=== PATIENT | female | born 1985 | race American Indian/Alaskan Native ===

== ENCOUNTER 2017-08-28 13:16 | Emergency (ER) | payer BC ==
[2017-08-28 14:28] VITALS: BP 130/86
[2017-08-28] MEDS ORDERED: BSS 1 DROPS, TETRACAINE 0.5% 1 DROPS, FUL-GLO 1 MG OS ONE (15:04)
[2017-08-28] MEDS ORDERED: CIPRODEX AS ONE (15:06)
[2017-08-28] MEDS ORDERED: FUL-GLO OP ONE (15:06)
[2017-08-28] MEDS ORDERED: TETRACAINE 0.5% OU ONE (15:07)
--- NOTE | 2017-08-28 15:24 | Emergency Department Report ---
Eye Injury/Foreign Body - HPI Duration: Today Eye Location: Left Severity: Mild Tetanus Status: Up to Date Eye Symptoms: Eye Pain: Yes, Blurred Vision: Yes, Eye Redness: Yes, Grinding/ Hammering Metal: No, Used Eye Protection: No, Contact Lens Use: Yes, Recalls Injury: No, Photophobia: Yes Other History: contacts. has not worn in weeks. woke up like this. no trauma ED Review of Systems ROS: Stated complaint: LEFT EYE INJURY Other details as noted in HPI Comment: All other systems reviewed and negative Eyes: as per HPI, eye pain, vision change. denies: eye discharge ED Past Medical Hx - Past Medical History Previous Medical History?: No - Surgical History Past Surgical History?: Yes Additional Surgical History: hernia - Family History Family history: no significant - Social History Smoking Status: Never Smoker Substance Use Type: Alcohol - Medications Home Medications: Home Medications Medication Instructions Recorded Confirmed Last Taken Type Cipro/Dexameth 0.3/0.1% [Ciprodex 2 drops OS Q4H #1 bottle 08/28/17 Unknown Rx OT[facility]] traMADol [Ultram] 50 mg PO Q6HR PRN #12 tablet 08/28/17 Unknown Rx Eye Injury Exam - Exam General: Vital signs noted. No distress. Alert and acting appropriately. - Visual Acuity Left Vision Acuity Degree: 20/200 Eye Exam: Right Photophobia, Both EOMI, Neither Injection, Neither Chemosis, Neither Abnormal Pupil, Neither Mucous Discharge, Neither Purulent Discharge Exam: tetracaine to l eye. w relief of pain and senstivity. stain w no inc uptake. no abrasion. no fb. no ulceration. no trauma or globe injury. perrl. eoms intact Right Vision Acuity Degree: 20/50 Bilateral Vision Acuity Degree: 20/40 ED Course Vital Signs 08/28/17 14:26 Temperature 98 F Pulse Rate 98 H Respiratory 16 Rate Blood Pressure 130/86 O2 Sat by Pulse 97 Oximetry - Reevaluation(s) Reevaluation #1: 08/28/17 15:54 to er w l eye pain no trauma wears contacts but has not for 2 w no meds no allergies no med problems va noted perrl eoms intact no pain w pupil constriction does report gen photophobia causing tearing fl. stain conducted relief w tetracaine globe intact; no trauma eoms intact medicated discussed w pt the need for optha follow up in am she verbalizes understanding. dc home w dc poc ED Medical Decision Making - Medical Decision Making see note - Differential Diagnosis conjunctivitis v iritis Critical care attestation.: If time is entered above; I have spent that time in minutes in the direct care of this critically ill patient, excluding procedure time. ED Disposition Clinical Impression: Iritis Disposition: DC-01 TO HOME OR SELFCARE Is pt being admited?: No Does the pt Need Aspirin: No Condition: Stable Instructions: Eye Pain (ED) Additional Instructions: do not rub eye meds as ordered follow up optha in am no contact lenses meds as ordered today Prescriptions: Cipro/Dexameth 0.3/0.1% [Ciprodex OTIC] 2 drops OS Q4H #1 bottle traMADol [Ultram] 50 mg PO Q6HR PRN #12 tablet PRN Reason: Pain Referrals: PRIMARY CARE, [Primary Care Provider] - 3-5 Days RAJ CALDERON MD [Staff Physician] - 3-5 Days PABLO CHUNG MD [Staff Physician] - 3-5 Days CEE IRBY MD [Staff Physician] - 3-5 Days Time of Disposition: 15:48
[2017-08-28] MEDS ORDERED: NORCO PO ONE (15:49)
== END 2017-08-28 16:20 | disposition home or self-care (01) ==
LOC: ED 13:16
DX: H20.9 Unspecified iridocyclitis (principal)
CPT/HCPCS: 99283

== ENCOUNTER 2018-02-01 13:14 | Emergency (ER) | payer BC, MEDICAID ==
--- NOTE | 2018-02-01 15:09 | Emergency Department Report ---
Blank Doc - Documentation Documentation: Patient is a 32-year-old female who has had several days of right lower quadrant pain. Patient states is also nausea involved. Patient states she is approximately 16 days late for her period. Patient has taken at home test which was negative hours patient states historically with past pregnancies in the beginning she has had negative urine test despite being . Patient will have a urinalysis and test performed here in the emergency department. If the patient is and because of her right lower quadrant pain and she will need to be ruled out for an ectopic . The patient is not th we will potentially work patient up to ensure she does not have appendicitis. En
[2018-02-01 15:17] LABS: Bacteria,Urine 1+ /HPF (Negative); Bilirubin,Urine NEG (Negative); Blood,Urine NEG (Negative); Color,Urine Yellow (Yellow); Mucus,Urine 1+ /HPF; Protein,Urine <15 mg/dL mg/dL (Negative); Urobilinogen,Urine < 2.0 mg/dL (<2.0)
[2018-02-01 15:21] LABS: HCG Qualitative,Urine Negative (Negative)
--- NOTE | 2018-02-01 16:20 | Emergency Department Report ---
ED Abdominal Pain HPI - General Chief Complaint: Abdominal Pain Stated Complaint: LOWER ABDOMINAL PAIN Time Seen by Provider: 02/01/18 15:00 Source: patient, family Mode of arrival: Ambulatory Limitations: No Limitations - History of Present Illness Initial Comments: Patient is a 32-year-old female who has had several days of right lower quadrant pain. Patient states is also nausea involved. Patient states she is approximately 16 days late for her period. Patient has taken at home test which was negative hours patient states historically with past pregnancies in the beginning she has had negative urine test despite being . She describes the pain as stabbing pain and also throbbing. Denies any fever or chills. Denies any urinary burning frequency or rigidity. Denies any nausea or vomiting. Denies any back pain. Denies any shortness of breath or chest pain. Last menstrual period was 12/17/2017. Denies taking any medication for pain. Denies any vaginal bleeding or discharge. She has no concerns for STDs. MD Complaint: abdominal pain, other (late menses) Onset/Timin -: days(s) Location: suprapubic Radiation: none Migration to: no migration Severity: mild Severity scale (0 -10): 3 Quality: cramping, other (thrombin) Consistency: intermittent Improves With: nothing Worsens With: nothing Context: other (she thinks she is ) Associated Symptoms: denies: nausea, vomiting, diarrhea, constipation, dysuria, hematemesis, hematochezia, hematuria, anorexia, syncope Treatments Prior to Arrival: other (none) - Related Data LMP Date: 12/17/17 Previous Rx's Medication Instructions Recorded Last Taken Type Cipro/Dexameth 0.3/0.1% [Ciprodex 2 drops OS Q4H #1 bottle 08/28/17 Unknown Rx OT[facility]] traMADol [Ultram] 50 mg PO Q6HR PRN #12 tablet 08/28/17 Unknown Rx Allergies Allergy/AdvReac Type Severity Reaction Status Date / Time No Known Allergies Allergy Verified 08/28/17 14:29 ED Review of Systems ROS: Stated complaint: LOWER ABDOMINAL PAIN Other details as noted in HPI Comment: All other systems reviewed and negative Constitutional: denies: chills, fever ENT: denies: throat pain Respiratory: denies: cough, shortness of breath, wheezing Cardiovascular: denies: chest pain, palpitations Endocrine: no symptoms reported Gastrointestinal: abdominal pain. denies: nausea, vomiting, diarrhea, constipation, hematemesis, melena, hematochezia Genitourinary: abnormal menses. denies: urgency, dysuria, frequency, hematuria , discharge, dyspareunia Musculoskeletal: denies: back pain, joint swelling, arthralgia Skin: denies: rash, lesions Neurological: denies: headache, weakness ED Past Medical Hx - Past Medical History Previous Medical History?: No - Surgical History Past Surgical History?: Yes Additional Surgical History: Hernia repair 2016. D and C 2007 - Family History Family history: cancer, hypertension - Social History Smoking Status: Never Smoker Substance Use Type: None Other Social History: Patient is and lives with her - Medications Home Medications: Home Medications Medication Instructions Recorded Confirmed Last Taken Type Cipro/Dexameth 0.3/0.1% [Ciprodex 2 drops OS Q4H #1 bottle 08/28/17 Unknown Rx OT[facility]] traMADol [Ultram] 50 mg PO Q6HR PRN #12 tablet 08/28/17 Unknown Rx ED Physical Exam - General Limitations: No Limitations General appearance: alert, in no apparent distress - Head Head exam: Present: atraumatic, normocephalic - Eye Eye exam: Present: normal appearance, PERRL. Absent: scleral icterus, conjunctival injection - ENT ENT exam: Present: normal exam, normal orophraynx, mucous membranes moist - Neck Neck exam: Present: normal inspection, full ROM - Respiratory Respiratory exam: Present: normal lung sounds bilaterally. Absent: respiratory distress, chest wall tenderness - Cardiovascular Cardiovascular Exam: Present: regular rate, normal rhythm, normal heart sounds. Absent: systolic murmur, diastolic murmur - GI/Abdominal GI/Abdominal exam: Present: soft, tenderness (right pelvic area), normal bowel sounds. Absent: distended, guarding, rebound, rigid, organomegaly, mass, bruit , pulsatile mass, hernia - Expanded GI/Abdominal Exam Expanded GI/Abdominal exam: Absent: psoas sign, obturator sign, tenderness at Mcburney's Point - Extremities Exam Extremities exam: Present: normal inspection, full ROM, normal capillary refill , other (no clubbing, cyanosis or edema, +2 pulses to all extremities.). Absent : tenderness, pedal edema, joint swelling, calf tenderness - Back Exam Back exam: Present: normal inspection, full ROM, other (ambulates without any difficulties). Absent: tenderness, CVA tenderness (R), CVA tenderness (L), muscle spasm, paraspinal tenderness, vertebral tenderness, rash noted - Neurological Exam Neurological exam: Present: alert, oriented X3, normal gait - Psychiatric Psychiatric exam: Present: normal affect, normal mood - Skin Skin exam: Present: warm, dry, intact, normal color. Absent: rash ED Course Vital Signs 02/01/18 13:45 Temperature 98.0 F Pulse Rate 86 Respiratory 16 Rate Blood Pressure 121/79 O2 Sat by Pulse 98 Oximetry - Reevaluation(s) Reevaluation #1: 02/01/18 17:33 Patient is stable throughout ED stay. She has no complaints her vital signs are stable. Patient given CT scan done at present. Reevaluation #2: 02/01/18 18:20 She refused to wait for CT scan results and decide she wants to go. I discussed with her that she has tenderness to her right lower abdominal area which could suggest that she has appendicitis and if so this could be a detriment to her health. She says she is hungry and she doesn't care and she would like to go ED Medical Decision Making - Lab Data Result diagrams: 02/01/18 16:35 02/01/18 16:35 Lab Results 02/01/18 02/01/18 02/01/18 Range/Units 16:35 16:35 Unknown WBC 9.5 (4.5-11.0) K/mm3 RBC 4.98 (3.65-5.03) M/mm3 Hgb 12.8 (10.1-14.3) gm/dl Hct 38.1 (30.3-42.9) % MCV 77 L (79-97) fl MCH 26 L (28-32) pg MCHC 34 (30-34) % RDW 14.9 (13.2-15.2) % Plt Count 296 (140-440) K/mm3 Lymph % (Auto) 35.6 H (13.4-35.0) % Harper % (Auto) 8.6 H (0.0-7.3) % Eos % (Auto) 1.6 (0.0-4.3) % Baso % (Auto) 0.5 (0.0-1.8) % Lymph # 3.4 (1.2-5.4) K/mm3 Harper # 0.8 (0.0-0.8) K/mm3 Eos # 0.1 (0.0-0.4) K/mm3 Baso # 0.0 (0.0-0.1) K/mm3 Seg Neutrophils % 53.7 (40.0-70.0) % Seg Neutrophils # 5.1 (1.8-7.7) K/mm3 Sodium 137 (137-145) mmol/L Potassium 4.4 (3.6-5.0) mmol/L Chloride 100.1 (98-107) mmol/L Carbon Dioxide 23 (22-30) mmol/L Anion Gap 18 mmol/L BUN 10 (7-17) mg/dL Creatinine 0.6 L (0.7-1.2) mg/dL Estimated GFR > 60 ml/min BUN/Creatinine Ratio 17 % Glucose 84 (65-100) mg/dL Calcium 9.3 (8.4-10.2) mg/dL Urine Color Yellow (Yellow) Urine Turbidity Clear (Clear) Urine pH 5.0 (5.0-7.0) Ur Specific Nesmith 1.028 (1.003-1.030) Urine Protein <15 mg/dl (Negative) mg/dL Urine Glucose (UA) Neg (Negative) mg/dL Urine Ketones Neg (Negative) mg/dL Urine Blood Neg (Negative) Urine Nitrite Neg (Negative) Urine Bilirubin Neg (Negative) Urine Urobilinogen < 2.0 (<2.0) mg/dL Ur Leukocyte Esterase Neg (Negative) Urine WBC (Auto) 1.0 (0.0-6.0) /HPF Urine RBC (Auto) 1.0 (0.0-6.0) /HPF U Epithel Cells (Auto) 5.0 (0-13.0) /HPF Urine Bacteria (Auto) 1+ (Negative) /HPF Urine Mucus 1+ /HPF Urine HCG, Qual Negative (Negative) Urine culture pending - Medical Decision Making ED course: Patient here complaining of lower abdominal pain. She is tender to palpate her right lower quadrant. CBC, chemistry and urinalysis normal except she has minimal elevation and urine pH. test is negative. This was communicated to patient but because she had tenderness to palpate her lower quadrants specifically right lower quadrant it was decided the patient will have a CT scan with IV contrast which she agreed to. While waiting for results patient decided that she cannot wait anymore that she is hungry and she wanted go home and eat and that she was fine AMA form for not wait in for labs. I discharged patient with diagnosis of abdominal pain and abnormal menses and for her to her primary care [facility] to follow up tomorrow. I also cautioned her to return to the hospital if she develop fever, increasing pain, chills, increased abdominal pain, nausea and vomited and she was understanding. Patient signed AMA form for not waiting for CT scan results and left with her . Urine also 1+ bacteria and she is asymptomatic and culture sent and pending. Diagnostic/labs: CBC stable, chemistry stable, urinalysis stable except she has 1+ bacteria in her urine and she is asymptomatic and pH is mildly elevated. CT scan of the abdomen and pelvis with IV contrast done and results pending. Radiology is called to expedite CT scan of the abdomen and pelvis but they report that they had a few had a patient's and will take at least 30 minutes and patient is aware of this. Urine culture sent Medication in emergency room: None Discharge medication: None Diagnosis: Abdominal pain to right lower abdomen Refusal treatment by patient Normal menstruation Symptomatic bacteriuria: Urine culture sent Referral: Patient referred to her primary care which she does have 1 to follow tomorrow or [facility] and they gave her my [facility] to call for tomorrow for follow- up abdominal pain and abnormal menses. Was understanding the need to follow-up. Critical care attestation.: If time is entered above; I have spent that time in minutes in the direct care of this critically ill patient, excluding procedure time. ED Disposition Clinical Impression: Refusal of treatment by patient, Abnormal menses, Asymptomatic bacteriuria Abdominal pain Qualifiers: Abdominal location: right lower quadrant Qualified Code(s): R10.31 - Right lower quadrant pain Disposition: DC-01 TO HOME OR SELFCARE Is pt being admited?: No Does the pt Need Aspirin: No Condition: Stable Instructions: Abdominal Pain (ED), Menstruation (ED) Additional Instructions: Please follow up with primary care and/or [facility] in the morning. You left for your CT scan of abdomen and pelvis was resulted as she said your hungry and wanted to eat. The abdomen was tender in the right lower quadrant and this could be detrimental G health if he has appendicitis so she decided to come back to the hospital or if you have any increasing pain, nausea vomiting, fever, feel free to do so Referrals: ESTELA SHARMA MD [Other] - 02/02/18 [facility] [Provider Group] - 02/02/18 Forms: AMA Form
[2018-02-01 16:57] LABS: Basophils % (Auto) 0.5 % (0.0-1.8); Eosinophils # (Auto) 0.1 K/mm3 (0.0-0.4); Eosinophils % (Auto) 1.6 % (0.0-4.3); Hematocrit 38.1 % (30.3-42.9); Hemoglobin 12.8 gm/dl (10.1-14.3); Lymphocytes # (Auto) 3.4 K/mm3 (1.2-5.4); Lymphocytes % (Auto) 35.6 % (13.4-35.0); Mean Corpuscular HGB Conc 34 % (30-34); Mean Corpuscular Hemoglobin 26 pg (28-32); Mean Corpuscular Volume 77 fl (79-97); Monocytes # (Auto) 0.8 K/mm3 (0.0-0.8); Monocytes % (Auto) 8.6 % (0.0-7.3); Platelet Count 296 K/mm3 (140-440); Red Blood Count 4.98 M/mm3 (3.65-5.03); Red Cell Distribution Width 14.9 % (13.2-15.2)
[2018-02-01 17:20] LABS: BUN/Creatinine Ratio 17; Blood Urea Nitrogen 10 mg/dL (7-17); Calcium 9.3 mg/dL (8.4-10.2); Hemolysis Index 36
[2018-02-01 18:35] VITALS: BP 120/84
--- NOTE | 2018-02-01 19:46 | Cat Scan Report ---
FINAL REPORT PROCEDURE: CT ABDOMEN PELVIS W CON TECHNIQUE: Computerized axial tomography of the abdomen and pelvis was performed after the IV injection of iodinated nonionic contrast. HISTORY: right lower quadrant pain COMPARISON: No prior studies are available for comparison. FINDINGS: Visualized lower thorax: No significant abnormality. Liver: There is diffuse low attenuation, compatible with fatty infiltration. Spleen: Normal size and attenuation. Gallbladder and biliary system: Normal. Pancreas: Normal. Adrenals: Normal. Kidneys: Normal. GI tract: There is moderate volume of stool in the colon. Appendix is visualized and does not appear inflamed. No bowel obstruction or acute inflammation is seen. Lymph nodes and mesentery: Normal. Vasculature: Normal. Bladder: Normal. Reproductive organs: Lobular uterus, likely related to fibroids. Peritoneum: No free fluid. Musculoskeletal structures: No significant abnormality. Other: None. IMPRESSION: No bowel obstruction or acute inflammation. Specifically there is no evidence of appendicitis. Fatty infiltration of the liver
== END 2018-02-01 18:33 | disposition home or self-care (01) ==
LOC: ED 13:14
DX: N94.89 Other specified conditions associated with female genital organs and menstrual cycle (principal)
CPT/HCPCS: 36415; 74177; 80048; 81001; 81025; 85025; 87086; 99284; Q9967